=== PATIENT | female | born 1955 | race Caucasian/White ===

== ENCOUNTER → 2017-01-09 | Outpatient (CLI) | payer OTHER ==
[~2017-01-09] MED LIST: LORTAB 10/500 T1 TAB PO; MEDROL PO
--- NOTE | ~2017-01-09 | CT137 ---
[facility]. [facility] A Service of [facility] RADIOLOGY TEXT RESULTS PATIENT: NORI ORTEGA LOCATION: [facility] : 55 UNIT #: [id number] AGE: [address]: VITO DE LEON MD SEX: F ORDER DR: [id number] [address] [address] [id number] O MR#: [id number] Acc #: [id number] NAME: NORI ORTEGA : 1955 SEX: F STUDY DATE/TIME: 01/09/2017 10:08 UNIT: [facility] ROOM: STUDY DESCRIPTION: CT Lung Screening annual Attending Physician: Vito De Leon M.D. Referring Physician: Vito De Leon M.D. Ordering Physician: Vito De Leon M.D. Primary Care Physician: Vito De Leon M.D. MEDICAL IMAGING REPORT This report is preliminary unless electronic signature is present. EXAM CT lung cancer screening study INDICATION Lung cancer screening. Shortness of air. Current smoker. COMPARISON 10/26/2015. TECHNIQUE Low dose technique was used to obtain 2 mm images through the chest. Sagittal and coronal reconstructions were generated. This CT examination was performed with one or more of the following radiation dose reduction techniques: automatic exposure control, adjustment of mA and/or kV according to patient size, and iterative reconstruction. FINDINGS The CTDI volume in mGy is 2.96 and the DLP is 104 mGy-cm. The lungs are clear. The visualized thyroid gland is normal. The aorta is normal in size. There is no mediastinal or hilar adenopathy. There are some coronary artery calcifications present. The visualized portions of the upper abdomen show fatty change throughout the liver with focal fatty sparing in the lateral segment of the left lobe of the liver. Similar findings were present last year. There is a stable nodule in the left breast measuring 1 cm in diameter. IMPRESSION 1. There are no lung nodules identified. 2. Stable 1 cm nodule left breast. 3. Stable fatty infiltration of the liver with focal fatty sparing. Lung-RADS category 1 Negative [facility] A Service of [facility] RADIOLOGY TEXT RESULTS PATIENT: NORI ORTEGA LOCATION: [facility] : 55 UNIT #: [id number] AGE: [address]: VITO DE LEON MD SEX: F ORDER DR: Dictated by... Trevon Child M.D. THIS IS AN ELECTRONICALLY VERIFIED REPORT Trevon Child M.D. at 01/10/2017 10:51 AM SKYLER/facundo TD: 01/10/2017 09:13 JOB #: [id number] MEDICAL IMAGING REPORT Page 1 of 1
== END | disposition home or self-care (01) ==
LOC: SCT 10:02
DX: F17.210 Nicotine dependence, cigarettes, uncomplicated (principal)
CPT/HCPCS: G0297

== ENCOUNTER → 2017-02-23 | Outpatient (CLI) | payer OTHER ==
--- NOTE | ~2017-02-23 | ST ---
Unit #: [id number] #: [id number] Patient: NORI ORTEGA [id number] [address] [address] [id number] O MR#: [id number] NAME: NORI ORTEGA : 1955 SEX: F STUDY DATE/TIME: UNIT: [facility] ROOM: STUDY DESCRIPTION: Stress Test Attending Physician: Ramón Dailey M.D. Referring Physician: Ramón Dailey M.D. Primary Care Physician: Yoanna Haney M.D. CARDIOLOGY REPORT EXAM Stress Test Patient underwent nuclear stress test. Patient initially exercised but due to leg pain and hip pain the test was changed for Lexiscan perfusion study. SUMMARY Patient underwent Lexiscan protocol. Patient's resting heart rate 58 beats per minute which increased to maximum 126 minutes per minute representing 79% of the maximum age predicted heart rate. Patient's resting blood pressure 137/69 mmHg which increased to 162/86 mmHg with Lexiscan infusion. Patient's resting ECG shows normal sinus rhythm with normal ST segments. Patient's stress ECG shows normal sinus rhythm with preserved ST segments. There is no ventricular or supraventricular ectopy noted. There are no pauses noted. CONCLUSION 1. Negative ECG portion of the Lexiscan study for ischemia. 2. Perfusion imaging dictated below. Dictated by... Jason Priest M.D. MT/df TD: 02/24/2017 06:28 JOB #: [id number] Unit #: [id number] #: [id number] Patient: NORI ORTEGA CARDIOLOGY REPORT Page 1 of 1 X JASON PRIEST MD CARDIOLOGY REPORT
--- NOTE | ~2017-02-23 | TH ---
Unit #: [id number] #: [id number] Patient: NORI ORTEGA [id number] [address] [address] [id number] O MR#: [id number] NAME: NORI ORTEGA : 1955 SEX: F STUDY DATE/TIME: UNIT: [facility] ROOM: STUDY DESCRIPTION: Nuclear Study Attending Physician: Ramón Dailey M.D. Referring Physician: Ramón Dailey M.D. Primary Care Physician: Yoanna Haney M.D. CARDIOLOGY REPORT EXAM Perfusion Imaging SUMMARY Patient underwent nuclear stress test. Received a resting dose of 11.99 mCi and a stress dose of 30.3 mCi. On gated imaging, patient appears to have hyperdynamic LV function with an LVEF of 79%. On perfusion imaging, comparing rest and stress images, there appears to be no reversible perfusion defects. CONCLUSION 1. No obvious ischemia. 2. Preserved ejection fraction. 3. ECG portion dictated above. Dictated by... Jason Priest M.D. ND/df TD: 02/24/2017 06:33 JOB #: [id number] CARDIOLOGY REPORT Page 1 of 1 X JASON PRIEST MD CARDIOLOGY REPORT
== END | disposition home or self-care (01) ==
LOC: CNUC 08:49
DX: R07.9 Chest pain, unspecified (principal); I51.89 Other ill-defined heart diseases
CPT/HCPCS: 78452; 93017; 93306; A9500; J2785